=== PATIENT | female | born 1960 | race Caucasian/White ===

== ENCOUNTER 2021-11-23 11:02 | Emergency (ER) | payer OTHER ==
[2021-11-23 11:54] VITALS: BP 135/76; PULSE 83; TEMP 97.8; BMI 41.8
[2021-11-23] MEDS ORDERED: IBUPROFEN 600 MG TABLET (FP) PO ONE ×2 (12:25→12:26)
== END 2021-11-23 12:33 | disposition home or self-care (01) ==
LOC: JERFT 11:02
DX: J02.9 Acute pharyngitis, unspecified (principal)
CPT/HCPCS: 87070; 99283-25

== ENCOUNTER 2022-04-20 15:54 | Emergency (ER) | payer OTHER ==
[2022-04-20 16:11] VITALS: BP 142/90; PULSE 79; TEMP 97.8; BMI 42.3
== END 2022-04-20 16:54 | disposition home or self-care (01) ==
LOC: JERFT 15:54 → JER 15:54 → JERFT 16:54
DX: K08.89 Other specified disorders of teeth and supporting structures (principal)
CPT/HCPCS: 99281-25